=== PATIENT | male | born 1985 | race Caucasian/White ===

== ENCOUNTER 2016-12-15 15:01 | Inpatient (IN) | payer OTHER ==
--- NOTE | ~2016-12-15 | PN ---
Unit #: [id number] #: [id number] Patient: JANETT AGUILAR [id number] [facility] [address] [place] [address] [id number] Ariel MR#: [id number] NAME: JANETT AGUILAR. ROOM: 12 Age: 31 Sex: M Admission Date: 12/15/2016 : 1985 Attending Physician: Pradeep Win M.D. Admitting Physician: Pradeep Win M.D. Primary Care Physician: Nick Pringle PROGRESS NOTES DATE 12/18/2016 DISCUSSION Mr. Aguilar is a 31-year-old white male who was seen today and chart was reviewed and case was discussed with the staff who report patient refused to take Thorazine last night and has been up all night long pacing the hallways and has been quite disorganized, psychotic, paranoid and delusional though he did not have any episode of physical aggression. I discussed with him the medication. He stated that he does not want to take Thorazine that he wants to take lithium. MENTAL STATUS EXAMINATION Young white male who was casually dressed with fair personal hygiene and appears to be in no acute distress or discomfort. He was awake and alert on interaction with intact orientation. His mood was anxious with congruent affect. He denies any suicidal or homicidal ideations and also denies any auditory or visual hallucinations. His insight and judgement remains slightly impaired. TREATMENT PLAN 1. Will continue on his current medications and treatment protocol. Will monitor his response to the medications and make further adjustments as needed. 2. Will continue to follow up. Dictated by... Nick Barron/radhika TD: 12/18/2016 20:19 JOB #: [id number] Unit #: [id number] #: [id number] Patient: JANETT AGUILAR ASHISH PROGRESS NOTES Page 1 of 1 X Pradeep Win MD PROGRESS NOTE
--- NOTE | ~2016-12-15 | PN ---
Unit #: [id number] #: [id number] Patient: JANETT AGUILAR [id number] [facility] [address] [place] [address] [id number] I MR#: [id number] NAME: JANETT AGUILAR ROOM: 12 Age: 31 Sex: M Admission Date: 12/15/2016 : 1985 Attending Physician: Pradeep Win M.D. Admitting Physician: Pradeep Win M.D. Primary Care Physician: Phu Galicia M.D. PEA PROGRESS NOTES DATE OF SERVICE 12/17/2016 DISCUSSION Mr. Aguilar is a 31-year-old white male who was seen today. Chart was reviewed and case was discussed with the staff. He has had a very rough day yesterday with acute agitation, psychosis, aggression, hostility, and violent outbursts with punching saldivar and slamming doors and had to be transferred to the acute psychiatric unit where he once again was seen to be very aggressive and hostile and punched a wall, put a whole through the wall. Staff reported that he came very close to punching them as well. When approached, he was pacing the hallways and stated he wanted to talk to me and then stated he wants to know what is going on, and that his mother brought him here and that it was a mistake, and that his mother needs to be here, and that there is nothing wrong with him and that he does not need to be on any medication and was getting agitated. Staff asked me to prescribe some p.r.n. medications. The patient then again started chasing, and making significant body odor, and he stated that he wants to know what is going on, if his family is alive, and if they are . I had to reassure him that everyone is fine, and he seemed to be exhibiting a lot of bizarre behavior and significant paranoia and delusional behavior. Later on while I was seeing another patient he was intervening and was invading the personal space and had to be redirected and once again he then approached me and stated that he believes that his mother is here in the hospital. Then he also came stating that his cousin is also here in the hospital and wanted to check on them. Overall he remains acutely psychotic, agitated, and belligerent, hostile, paranoid, and delusional with significant cognitive impairment. As such we will adjust his medications particularly to keep him calm and keep him safe, and people around him safe. Dictated by... Nick Barron/mil TD: 12/17/2016 08:34 JOB #: [id number] Unit #: [id number] #: [id number] Patient: JANETT AGUILAR Neo HINOJOSA PROGRESS NOTES Page 1 of 1 X Pradeep Win MD X PROGRESS NOTE
--- NOTE | ~2016-12-15 | PA ---
Unit #: [id number] #: [id number] Patient: JANETT AGUILAR [id number] [facility] [address] [place] [address] [id number] I MR#: [id number] NAME: JANETT AGUILAR ROOM: P112 Age: 31 Sex: M Admission Date: 12/15/2016 : 1985 Date of Assessment: 12/16/2016 Attending Physician: Pradeep Win M.D. Admitting Physician: Pradeep Win M.D. Primary Care Physician: Phu Galicia M.D. PSYCHIATRIC ASSESSMENT DATE OF SERVICE 12/16/2016. IDENTIFYING DATA Mr. Aguilar is a 31-year-old single white male, who is a resident of [place], [place] and was self-referred to the hospital on voluntary basis. CHIEF COMPLAINT Two nights ago when I was working, "it sounded like that the radio was talking to me." HISTORY OF PRESENT ILLNESS Mr. Aguilar is a 31-year-old white male with history of mood disorder and psychosis who was brought to the hospital with acute psychosis, stating that he has been hearing voices and stated last night at work he had a thought that he had to get the evil spirits out of him and the patient also stated that he put a cat on his lap and that evil spirits went out of him and into the cat and then Renea threw a cross at him and it broke on his foot and the patient stated that he then went outside in a moo-moo and stared up in the billie and the voices in his head stopped screaming and the patient said that he went inside at the urge of a neighbor to come in and the patient stated that he did not remember much else until that he was here and the patient stated that his mind has been here and there and mother has told to the hospital staff that the patient thinks that he is Ag and everyone is being molested and the patient has been exhibiting similar behavior at work and has indicated that he has been having a delusion of reference through the radio and was seen to be in acute psychotic state to his significant psychosis, agitation, restlessness, and has some knives at home, but denies that the weapons and the patient has been making statement just feel like I'm a puppet on a string and was seemed to be agitated, irritable, and danger to self and others and as such, recommendation for inpatient level of care for safety and stabilization was made and the patient was transferred to us. SUBSTANCE ABUSE HISTORY The patient has extensive history of substance abuse and dependence including alcohol, cannabis, cocaine, inhalants, and amphetamines and benzodiazepines, and bath salt, that he has tried once, though he reports that more recently he has only been smoking cannabis and he has not used any other drugs in the last several months although this could not be verified at this time. Unit #: [id number] #: [id number] Patient: JANETT AGUILAR PAST PSYCHIATRIC HISTORY The patient has had history of inpatient psychiatric hospitalizations at [facility] as well as outpatient treatment at [facility] and review of the medical records indicate that he has been diagnosed and treated for schizoaffective disorder, and has been noncompliant with the medication. He is currently not seeing a psychiatrist, and is not taking any psychotropic medications. PAST MEDICAL HISTORY The patient's medical history is significant for asthma. ALLERGIES Tramadol, penicillin, Biaxin, codeine, Mobic, Zoloft. PERSONAL AND SOCIAL HISTORY A 31-year-old white male, who reports that he is single, unemployed, and lives alone and has poor social support system. MENTAL STATUS EXAMINATION Middle-aged young white male, who was casually dressed with fair personal hygiene, appears to be in no acute distress or discomfort. He was awake and alert on interaction with intact orientation to time, place, and person. His mood was anxious and depressed with a congruent affect. The patient's speech was slow and restricted in content. His thought processes were disorganized with some looseness of associations and flight of ideas and suicidal ideations, auditory and visual hallucinations, paranoid ideations and delusional behavior. His insight and judgment remain significantly impaired. DIAGNOSTIC IMPRESSION Psychiatric: Schizoaffective disorder, bipolar type, most recent episode depressed, recurrent, moderate, with psychosis. Medical: Asthma. Stressors: Moderate psychosocial stressors. TREATMENT PLAN 1. The patient has presented with history of mood disorder and psychosis and has been decompensating and will need inpatient hospitalization for safety and stabilization. We will start him back on his home medications. We will adjust the medications and monitor response. 2. Supportive therapy was provided to the patient. ESTIMATED LENGTH OF STAY 5 to 7 days. ABILITY TO HELP SELF Limited. WILLINGNESS TO HELP SELF The patient appears to be willing to help self. STRENGTHS 1. Communicative. 2. Cooperative. PROBLEMS 1. Chronic dysphoric symptoms. 2. Poor social support system. Unit #: [id number] #: [id number] Patient: JANETT AGUILAR DISCHARGE CRITERIA This will be contingent upon the patient's ability to show resolution of depression, anxiety, and psychosis and his ability to stay safe to himself, particularly after discharge from the hospital. Dictated by... Nick Barron/jerrod TD: 12/16/2016 07:43 JOB #: [id number] PSYCHIATRIC ASSESSMENT Page 1 of 1 X Pradeep Win MD PSYCHIATRIC ASSESSMENT
--- NOTE | ~2016-12-15 | PN ---
Unit #: [id number] #: [id number] Patient: JANETT AGUILAR [id number] [facility] [address] [place] [address] [id number] I MR#: [id number] NAME: JANETT AGUILAR. ROOM: P258 Age: 31 Sex: M Admission Date: 12/15/2016 : 1985 Attending Physician: Pradeep Win M.D. Admitting Physician: Pradeep Win M.D. Primary Care Physician: Nick Pringle PROGRESS NOTES DATE OF SERVICE 12/20/2016 DISCUSSION Mr. Aguilar is a 31-year-old white male who was seen today. Chart was reviewed and case was discussed with the staff. He has been doing fairly well with improvement in his mood, anger, anxiety, and agitation and has been compliant with the treatment recommendations and has been taking the medications and tolerating them fairly well. MENTAL STATUS EXAMINATION Young white male who is casually dressed with fair personal hygiene, appears to be in no acute distress or discomfort. The patient was awake and alert on interaction with intact orientation. His mood is anxious with congruent affect. He denies any suicidal or homicidal ideations. His insight and judgment remain slightly impaired. TREATMENT PLAN 1. We will continue him on his current treatment protocol. We will monitor his response to the medications and make further adjustments as needed. 2. We will continue to follow up. Dictated by... Pradeep Win M.D. IAA/bzg TD: 12/21/2016 07:11 JOB #: [id number] ASHISH PROGRESS NOTES Page 1 of 1 X Pradeep Win MD PROGRESS NOTE
--- NOTE | ~2016-12-15 | HP ---
Unit #: [id number] #: [id number] Patient: HARLEY AGUILAR [id number] [place] [address] [id number] I MR#: [id number] NAME: HARLEY AGUILAR. ROOM: 12 Age: 31 Sex: M Admission Date: 12/15/2016 : 1985 Attending Physician: Pradeep Win M.D. Admitting Physician: Pradeep Win M.D. Primary Care Physician: Phu Galicia M.D. HISTORY AND PHYSICAL HISTORY OF PRESENT ILLNESS Harley is a 31 year old admitted to [address] [place] [address] with psychotic behavior. He reports auditory hallucinations. He is a poor historian so his history is taken from his chart. He has had other admissions to this facility. PAST MEDICAL HISTORY Nothing significant. PAST SURGICAL HISTORY Nothing reported. ALLERGIES Penicillin, codeine, Biaxin, Zoloft. SOCIAL HISTORY He smokes 2 packs per day. Denies alcohol. Admits to having used marijuana. FAMILY HISTORY Medically noncontributory. REVIEW OF SYSTEMS He does not answer questions appropriately. There are no reports of nausea, vomiting or diarrhea. He has had no cough or increased temperature. CURRENT MEDICATIONS 1. Risperdal 1 mg b.i.d. 2. Milk of Magnesia p.r.n. 3. Maalox p.r.n. 4. Tylenol p.r.n. 5. Desyrel 100 mg q.h.s. 6. Nicotine patch 7 mg daily. PHYSICAL EXAMINATION GENERAL: Alert, well-nourished, in no apparent distress. VITAL SIGNS: Blood pressure 138/86, heart rate 100, respirations 16, temperature 98.6. WEIGHT: 245. HEIGHT: 6 feet 1 inches. SKIN: Warm and dry without rash or lesion. HEENT: Normocephalic. TMs not viewed. Oral and nasal passages clear. Conjunctivae clear. PERRLA. EOMs intact. NECK: Supple without lymphadenopathy or thyromegaly. Unit #: [id number] #: [id number] Patient: HARLEY AGUILAR HEART: Regular rate and rhythm without murmur. LUNGS: Clear. ABDOMEN: Soft, nontender. : Not done. EXTREMITIES: No evidence of cyanosis, clubbing or edema. Moves all without focal deficit. NEUROLOGICAL: Unable to complete extended exam. He does move all extremities without focal deficit. 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 IMPRESSION Psychiatric admission. RECOMMENDATIONS PSYCHIATRIC: Per psychiatrist. MEDICAL: See no contraindications to participate in facility's activities. MEDICAL PROGNOSIS Good. MEDICAL CONDITION Stable. Dictated by... Tova Tesfaye P.A.-C. for Nick Johnson/radhika TD: 12/16/2016 18:39 JOB #: [id number] HISTORY AND PHYSICAL Page 1 of 1 X Tova Tesfaye X HISTORY AND PHYSICAL
--- NOTE | ~2016-12-15 | CR142 ---
[facility] A Service of [facility] RADIOLOGY TEXT RESULTS PATIENT: JANETT AGUILAR LOCATION: P1S P112-1 : [birth year] UNIT #: [id number] AGE: [address]: Pradeep Win MD SEX: M ORDER DR: [id number] [facility] [address] [place], [place] [address] [id number] I MR#: [id number] Acc #: [id number] NAME: JANETT AGUILAR : 1985 SEX: M STUDY DATE/TIME: 12/16/2016 19:07 UNIT: [facility] ROOM: [facility] STUDY DESCRIPTION: CR Hand Min 3 Views Rt Attending Physician: Pradeep Win M.D. Ordering Physician: Pradeep Win M.D. Primary Care Physician: Phu Galicia M.D. MEDICAL IMAGING REPORT This report is preliminary unless electronic signature is present EXAM Right hand HISTORY Right hand pain status post punching a wall. FINDINGS 3 views of the right hand compared to 01/18/2016. There is no acute fracture or dislocation. There is a healed distal fifth metacarpal fracture. There is some soft tissue swelling over the dorsum of the hand. No foreign body. IMPRESSION 1. Mild dorsal soft tissue swelling. 2. Old healed fracture of the fifth metacarpal. Dictated by... Ricardo Sumner M.D. THIS IS AN ELECTRONICALLY VERIFIED REPORT Ricardo Sumner M.D. at 12/16/2016 9:46 PM RPC/brinda TD: 12/16/2016 20:18 JOB #: [id number] MEDICAL IMAGING REPORT Page 1 of 1 COPY
--- NOTE | ~2016-12-15 | PN ---
Unit #: [id number] #: [id number] Patient: JANETT AGUILAR [id number] [facility] [address] [place] [address] [id number] MR#: [id number] NAME: JANETT AGUILAR. ROOM: P258 Age: 31 Sex: M Admission Date: 12/15/2016 : 1985 Attending Physician: Pradeep Win M.D. Admitting Physician: Pradeep Win M.D. Primary Care Physician: Nick Pringle PROGRESS NOTES DATE 12/19/2016 DISCUSSION Mr. Aguilar is a 31-year-old, white male who was seen today and chart was reviewed and case was discussed with the staff. She has been anxious, withdrawn and rather seclusive to himself. Meanwhile, he has been cooperative with treatment recommendations. He has been taking the medications and tolerating them fairly well. MENTAL STATUS EXAM Young white male who was casually dressed with fair personal hygiene, appears to be in no acute distress or discomfort. He was awake and alert on interaction with intact orientation. His mood was anxious with congruent affect. He denies any suicidal or homicidal ideation. His insight and judgement remains slightly impaired. TREATMENT PLAN 1. We will continue him on his current treatment protocol. We will monitor his response and make further adjustments as needed. 2. We will continue to follow up. Dictated by... Nick Barron/tanika TD: 12/20/2016 20:02 JOB #: [id number] Unit #: [id number] #: [id number] Patient: JANETT AGUILAR PROGRESS NOTES Page 1 of 1 X Pradeep Win MD PROGRESS NOTE
--- NOTE | ~2016-12-15 | DS ---
Unit #: [id number] #: [id number] Patient: JANETT AGUILAR [id number] [facility] [address] [place] [address] [id number] MR#: [id number] NAME: JANETT AGUILAR. ROOM: P258 Age: 31 Sex: M Admission Date: 12/15/2016 : 1985 Discharge Date: 12/21/2016 Attending Physician: Pradeep Win M.D. Primary Care Physician: Phu Galicia M.D. DISCHARGE SUMMARY IDENTIFYING DATA Mr. Aguilar is a 31-year-old, single, white male who is a resident of [place], [place], and was self-referred to the hospital on a voluntary basis. DISCHARGE DIAGNOSES PSYCHIATRIC: Schizoaffective disorder, bipolar type, most recent episode depression, recurrent, moderate with psychosis. MEDICAL: Asthma. STRESSORS: Moderate psychosocial stressors. HISTORY OF PRESENT ILLNESS Please see initial psychiatric evaluation. PAST PSYCHIATRIC HISTORY Please see initial psychiatric evaluation. PAST MEDICAL HISTORY Please see initial psychiatric evaluation. HOSPITAL COURSE Patient was admitted to the adult psychiatric unit at [facility] satinder Hauser and was oriented to the hospital environment. Routine p.r.n. medications were initiated and he was started back on his home medications. I started him on a low dose of RisperDAL; however, soon afterwards, it was noted the patient has been acutely psychotic, hostile, belligerent, and violent and is showing episodes of physical outbursts and he was then transferred to the chronic medical illness unit and medications were adjusted. I put him on Thorazine (1) getting intramuscular injections and p.r.n. medications, was staying up all night long, and was delusional about his family members being there and people being after him and something is going to happen to him and then coming after staff members. However, he refused to take Thorazine, but was willing to take RisperDAL, which was then maintained along with lithium and he was taking medications regularly and, as expected, he was able to show a good and therapeutic response to the medication with significant improvement in his agitation and aggression and psychosis and he was then transferred back to the [facility] acute unit and was able to tolerate the environment fairly well and was wanting to go home and was willing to continue treatment on an outpatient basis. He was denying any suicidal ideations, intent, or plan and no Unit #: [id number] #: [id number] Patient: JANETT AGUILAR agitation or aggression was noted and he did not seem to be a danger to self or anyone else. As such, it was decided that he will be discharged and will continue treatment on outpatient basis. DISCHARGE MEDICATIONS 1. RisperDAL 2 mg twice a day for bipolar. 2. [place] 450 mg 3 times a day for bipolar. 3. Trazodone 100 mg at bedtime for sleep. DISCHARGE CONDITION Stable. PROGNOSIS Fair. Dictated by... Nick Barron/becka TD: 12/23/2016 09:51 JOB #: [id number] DISCHARGE SUMMARY Page 1 of 1 X Pradeep Win MD X DISCHARGE SUMMARY
[~2016-12-15 15:01] MED LIST: ALBUTEROL17 GM INH; ILOTYCIN OINTMENT; TYLENOL #3 PO
[2016-12-16 09:45] LABS: BASOPHIL# 0.1 X10e3 (0-0.3); BASOPHIL% 0.6 % (0-2.5); EOSINOPHIL# 0.3 X10e3 (0-0.7); EOSINOPHIL% 2.2 % (0.0-7.0); HEMATOCRIT 47.5 % (38.0-50.0); HEMOGLOBIN 16.1 gm/dL (13.0-16.0); LYMPHOCYTE# 2.9 X10e3 (1.0-3.5); LYMPHOCYTE% 23.7 % (17.0-45.0); MEAN CELL VOLUME 89.7 FL (83-96); MEAN CORPUSCULAR HEMOGLOBIN 30.3 PG (28-34); MEAN CORPUSCULAR HGB CONC 33.8 g/dL (30-36); MEAN PLATELET VOLUME 8.2 FL (6.5-11.5); MONOCYTE# 1.4 X10e3 (0-1.0); MONOCYTE% 11.8 % (3.0-12.0); NEUTROPHIL# 7.5 X10e3 (1.5-7.1); NEUTROPHIL% 61.7 % (40-75); PLATELET COUNT 359 X10e3 (140-420); RED BLOOD COUNT 5.29 X10e (3.90-5.60); RED CELL DISTRIBUTION WIDTH 13.7 % (11.0-15.5); WHITE BLOOD COUNT 12.2 X10e3 (4.0-10.5)
[2016-12-16 10:07] LABS: DIFF IND NO
[2016-12-16 11:19] LABS: ALBUMIN SERUM 4.7 g/dL (3.5-5.0); BILIRUBIN,TOTAL 1.3 mg/dL (0.2-2.0); CALCIUM SERUM 9.7 mg/dL (8.4-10.2); GLOM FILT RATE Estimated 99.9 mL/min (>60); POTASSIUM 3.5 mmol/L (3.5-5.1); PROTEIN TOTAL SERUM 7.9 g/dL (6.0-8.3)
[2016-12-21 09:39] LABS: URINE APPEARANCE CLEAR; URINE BILIRUBIN NEG (NEG); URINE BLOOD NEG (NEG); URINE COLOR YELLOW; URINE GLUCOSE NEG (NEG); URINE KETONE NEG (NEG); URINE LEUKOCYTE ESTERASE 2+ (NEG); URINE NITRATE NEG (NEG); URINE PH 6.5 (5-8); URINE PROTEIN NEG (NEG); URINE SPECIFIC GRAVITY 1.012 (1.003-1.035); URINE UROBILINOGEN 0.2 MG/DL (NEG)
[2016-12-21 09:44] LABS: URBCS1 AUWI 0-2 /[HPF] (0-2); URINE BACTERIA AUWI NEG (NEGATIVE); URINE SQUAMOUS EPITHELIAL CELL NONE SEEN /[HPF]
[2016-12-21 10:22] LABS: AMPHETAMINE NEG (NEG); BARBITURATES NEG (NEG); BENZODIAZEPINES NEG (NEG); COCAINE NEG (NEG); MARIJUANA POS (NEG); OPIATES NEG (NEG); TRICYCLIC ANTIDEPRESSANTS NEG (NEG); U METHADONE NEG (NEG)
== END 2016-12-21 11:00 | disposition home or self-care (01) | DRG 885 ==
LOC: P2L 18:28 → P1S 18:28 → P2L 12-19 14:32
PROVIDERS: Psychiatry & Neurology Psychiatry
DX: F25.0 Schizoaffective disorder, bipolar type (principal); F31.32 Bipolar disorder, current episode depressed, moderate; F29 Unspecified psychosis not due to a substance or known physiological condition; J45.909 Unspecified asthma, uncomplicated; F41.9 Anxiety disorder, unspecified; Z88.5 Allergy status to narcotic agent; Z88.0 Allergy status to penicillin; Z88.6 Allergy status to analgesic agent; Z88.8 Allergy status to other drugs, medicaments and biological substances; F17.210 Nicotine dependence, cigarettes, uncomplicated
CPT/HCPCS: 73130; 80053; 80307; 81003; 85025; J3486

== ENCOUNTER 2017-01-09 09:22 | Emergency (ER) | payer OTHER ==
[2017-01-09] MEDS ORDERED: LITHIUM PO (09:35)
[2017-01-09] MEDS ORDERED: TRAZODONE PO (09:35)
[2017-01-09] MEDS ORDERED: RISPERDAL PO (09:35)
== END 2017-01-09 10:23 | disposition home or self-care (01) ==
LOC: SED 09:22
DX: H65.91 Unspecified nonsuppurative otitis media, right ear (principal); J06.9 Acute upper respiratory infection, unspecified; F17.200 Nicotine dependence, unspecified, uncomplicated
CPT/HCPCS: 99282